=== PATIENT | female | born 1960 | race Caucasian/White ===

== ENCOUNTER 2020-11-05 12:20 | Emergency (ER) | payer OTHER ==
[~2020-11-05] VITALS: Ht 154.9 cm; Wt 65.7 kg
--- NOTE | 2020-11-06 16:00 | EKG ---
[facility] [address] [facility] [place], [place] [address] Signed Sinus rhythm with marked sinus arrhythmia Right atrial enlargement Incomplete right bundle branch block Nonspecific ST abnormality Abnormal ECG No previous ECGs available Confirmed by DONTAE AQUINO MD ([id number]) on 11/06/2020 4:00:14 PM Electronically Signed By: DONTAE AQUINO MD 11/06/20 1600 PATIENT NAME: CRISELDA WATSON Zach Electrocardiogram DATE OF : 64 PHYSICIAN: DONTAE AQUINO MD REPORT #: [id number] REPORT IS CONFIDENTIAL AND NOT TO BE RELEASED WITHOUT AUTHORIZATION
== END 2020-11-05 17:12 | disposition home or self-care (01) ==
LOC: ED 12:20
DX: R07.89 Other chest pain (principal); Z20.822 Contact with and (suspected) exposure to COVID-19; F17.200 Nicotine dependence, unspecified, uncomplicated; Z88.8 Allergy status to other drugs, medicaments and biological substances; Z88.5 Allergy status to narcotic agent
CPT/HCPCS: 71045; 80053; 83735; 84484; 85025; 93005; 93010; 99285-25; 99406; C9803; U0003

== ENCOUNTER 2022-03-18 19:45 | Emergency (ER) | payer OTHER ==
[~2022-03-18] VITALS: Ht 154.9 cm; Wt 62.1 kg
== END 2022-03-19 00:13 | disposition home or self-care (01) ==
LOC: ED 19:45
DX: M79.641 Pain in right hand (principal); M25.531 Pain in right wrist; F17.200 Nicotine dependence, unspecified, uncomplicated; Z88.2 Allergy status to sulfonamides; Z88.5 Allergy status to narcotic agent; Z88.8 Allergy status to other drugs, medicaments and biological substances
CPT/HCPCS: 73110; 73130; 99283-25

== ENCOUNTER 2024-05-23 05:08 | Emergency (ER) | payer OTHER ==
[~2024-05-23] VITALS: Ht 154.9 cm; Wt 58.1 kg
[~2024-05-23 05:08] MED LIST: CLEOCIN HCL300 MG PO
[2024-05-23 05:25] LABS: PH, VENOUS 7.398 (7.31-7.41)
[2024-05-23 05:26] LABS: BASOPHILS 0.8 % (0-2); EOSINOPHILS 2.9 % (0-6); HEMATOCRIT 47.2 % (35.0-50.0); HEMOGLOBIN 15.8 g/dL (12.0-18.0); LYMPHOCYTES 18.2 % (24-44); MCH 30.6 (27-36); MCHC 33.4 g/dl (30-36); MCV 91.6 fl (81-99); MONOCYTES 6.6 % (0-12); NEUTROPHILS 71.5 % (39-80); PLATELET COUNT 286 K/uL (140-440); RBC 5.15 M/ul (4.3-5.7); RDW 13.3 (10.5-15.0)
[2024-05-23] MEDS ORDERED: methylPREDNISolone SOD SUCC 125 MG/2 ML VIAL IV ONE (05:30)
[2024-05-23] MEDS ORDERED: ALBUTEROL/IPRATROPIUM 3 ML NEB INH ONE (05:30)
[2024-05-23 05:36] LABS: SMEAR REVIEW BLOOD SEE COMMENTS
[2024-05-23 05:49] LABS: ALBUMIN 4.2 g/dL (3.4-5.0); ALBUMIN/GLOBULIN RATIO 1.11 (1.1-2.4); ANION GAP 15.9 (7-21); BILIRUBIN, TOTAL 0.5 ng/dL (0.2-1.0); BUN/CREATININE RATIO 14.06 (6.0-28.6); CALCIUM 9.8 mg/dL (8.5-10.1); CREATININE, SERUM 0.64 mg/dL (0.55-1.02); POTASSIUM 3.9 mmol/L (3.5-5.1)
[2024-05-23 06:09] LABS: INFLUENZA B NAA NEGATIVE (NEGATIVE); RESPIRATORY SYNCYTIAL VIR NAA NEGATIVE (NEGATIVE)
[2024-05-23] MEDS ORDERED: AZITHROMYCIN 250 MG HOME.PACK PO ONE (06:30)
[2024-05-23] MEDS ORDERED: ALBUTEROL SULFATE 8 GM HOME.PACK INH ONE (06:30)
[2024-05-23] MEDS ORDERED: INHALER, ASSIST DEVICES 1 EACH SPACER MISC ONE (06:30)
[2024-05-23] MEDS ORDERED: methylPREDNISolone 4 MG HOME.PACK PO ONE (06:30)
[2024-05-23 06:44] VITALS: BP 127/86
--- NOTE | 2024-05-23 18:15 | EKG ---
[facility] [address] [facility] [place], [place] [address] Signed Normal sinus rhythm Biatrial enlargement Abnormal ECG When compared with ECG of 05-NOV-2020 12:27, No significant change was found Confirmed by Markus Bradley MD ([id number]) on 05/23/2024 6:15:28 PM Electronically Signed By: MARKUS BRADLEY MD 05/23/241814 PATIENT NAME: CRISELDA WATSON OLIVA Electrocardiogram DATE OF : 64 PHYSICIAN: MARKUS BRADLEY MD REPORT #: [id number] REPORT IS CONFIDENTIAL AND NOT TO BE RELEASED WITHOUT AUTHORIZATION
== END 2024-05-23 06:45 | disposition home or self-care (01) ==
LOC: ED 05:08
PROVIDERS: Family Medicine
DX: J20.8 Acute bronchitis due to other specified organisms (principal); F17.201 Nicotine dependence, unspecified, in remission; Z88.2 Allergy status to sulfonamides; Z88.0 Allergy status to penicillin; Z88.5 Allergy status to narcotic agent
CPT/HCPCS: 36415; 71045; 80053; 82803; 83880; 84484; 85025; 85060; 85379; 87502; 93005; 93010; 94640; 94664; 96374; 99285-25; J2919; U0002